=== PATIENT | female | born 2000 ===

== ENCOUNTER → 2023-07-01 06:28 | Day surgery (SDC) | payer BC, SELFPAY | LOC: GI 06:28 | PROVIDERS: ATTENDING PHYSICIAN Internal Medicine Gastroenterology | DX: K64.8 Other hemorrhoids (principal); K62.89 Other specified diseases of anus and rectum; K29.50 Unspecified chronic gastritis without bleeding; K44.9 Diaphragmatic hernia without obstruction or gangrene; K31.89 Other diseases of stomach and duodenum; R10.13 Epigastric pain | CPT/HCPCS: 45378; 43239; 88305; 88342 ==